=== PATIENT | female | born 2000 | race African-American/Black ===

== ENCOUNTER 2020-03-07 02:57 | Outpatient (CLI) | payer OTHER ==
[2020-03-07] MEDS ORDERED: PRENATAL TABLE1 EACH (03:03)
== END 2020-03-07 14:58 | disposition home or self-care (01) ==
LOC: OBS/DEL 02:57
PROVIDERS: ATTEND Obstetrics & Gynecology
DX: O26.843 Uterine size-date discrepancy, third trimester (principal); O26.893 Other specified pregnancy related conditions, third trimester; R10.2 Pelvic and perineal pain; O36.8130 Decreased fetal movements, third trimester, not applicable or unspecified